=== PATIENT | male | born 1935 | race Caucasian/White ===

== ENCOUNTER → 2023-08-31 13:38 | Outpatient (REF) | payer MEDICARE, OTHER, SELFPAY | LOC: MRI 13:38 | PROVIDERS: ATTENDING PHYSICIAN Psychiatry & Neurology Neurology; FAMILY PHYSICIAN Family Medicine | DX: R47.01 Aphasia (principal) | CPT/HCPCS: 70551 ==

== ENCOUNTER → 2023-12-07 15:50 | Outpatient (REF) | payer MEDICARE, OTHER, SELFPAY | LOC: HWRAD 15:50 | PROVIDERS: ATTENDING PHYSICIAN Family Medicine | DX: M54.9 Dorsalgia, unspecified (principal) | CPT/HCPCS: 72072; 72110 ==

== ENCOUNTER 2023-12-16 04:31 | Emergency (ER) | payer MEDICARE, OTHER, SELFPAY ==
[2023-12-16] VITALS (7 sets, daily range): BP systolic 118–147; BP diastolic 71–90; BMI 23.6
--- NOTE | 2023-12-16 04:47 | ED.GENMED ---
History of Present Illness
<LEONEL Marcus - Last Filed: 12/16/23 22:00>
General
Chief Complaint: Back Pain
Source: patient and family
Exam Limitations: dementia
Time Seen by Provider: 12/16/23 04:45
Nursing documentation reviewed up to this point in time: agreed with
History of Present Illness
History of Present Illness:
Patient is a 88yo M who presents w/ continued back pain after fall 10 days ago. Imaging was done day of fall and no fx found. Has been tx pain w/ lidocaine/icy hot patches and Tylenol. Reports pain was improving until today. Pt family said he was
able to ambulate earlier today w/o issue. Pt fell asleep for 2-3 hrs on recliner (not usual sleeping spot) and woke up w/ severe pain limiting movement. States he feels spasming in back. Pt states pain is equal BL and does not radiate down leg. Pt's
son notes his L back was very tender when trying to help pt into bed. Pt denies any changes to bowel or bladder habits from baseline. Denies any SHORT, dizziness, or numbness.
Review of Systems
<LEONEL Marcus - Last Filed: 12/16/23 22:00>
Review of Systems
Constitutional: Denies fever, fatigue or chills
Respiratory: Denies cough or trouble breathing
Cardiac: Denies chest pain or palpitations
ABD/GI: Denies abdominal pain, nausea, vomiting, diarrhea or constipated
: Denies dysuria
Musculoskeletal: Reports muscle pain and back pain
Skin: Reports itching
Neurological: Denies dizzy, headache, weakness or numbness
Phy Exam
<LEONEL Marcus - Last Filed: 12/16/23 22:00>
General Physical Exam
General Presentation: well appearing
General age: appears stated age
General Skin: warm and dry
General Habitus: normal
General Mental: alert
Eye Exam
Eye Exam: PERRL
Cardiovascular Exam
Cardiovascular Exam: regular rate/rhythm, no edema, no gallop and no murmur
Pulmonary Exam
Pulmonary Exam: lungs clear, no respiratory distress, no rales, no crackles, no rhonchi and no wheezing
Neurological Exam
Neurological Exam: alert, oriented x3, no sensory deficits and speech normal
Musculoskeletal Exam
Musculoskeletal Exam: back pain, neuro vasc intact and other (limited ROM due to pain )
Course
<LEONEL Marcus - Last Filed: 12/16/23 22:00>
Orders/Labs/Results
Orders:
Orders
12/16/23 05:51
Diazepam [Valium] 5 mg PO NOW STA
12/16/23 06:34
Acetaminophen [Tylenol] 1,000 mg PO NOW STA
12/16/23 06:49
PT Consult [Pt Eval And Treat] Urgent
Activity Level: Out of Bed-Early Mobility
12/16/23 07:46
CT Lumbar Spine W/o Iv Contras Urgent
Comment:
Reason For Exam: worsening pain after fall, neg XRAY
CT Thoracic Spine W/o Iv Contr Urgent
Comment:
Reason For Exam: worsenign pain after fall, neg XRAY
Ketorolac [Toradol] 30 mg IM NOW STA
12/16/23 08:20
Ketorolac [Toradol] 15 mg IM NOW STA
Vital Signs
Initial and Last Documented VS:
Initial Vital Signs
Temp Pulse Resp BP Pulse Ox
97.6 F 88 18 147/90 98
12/16/23 04:33 12/16/23 04:33 12/16/23 04:33 12/16/23 04:33 12/16/23 04:33
Last Documented Vital Signs
Temp Pulse Resp BP Pulse Ox
97.6 F 88 18 118/73 97
12/16/23 04:33 12/16/23 04:33 12/16/23 04:33 12/16/23 09:58 12/16/23 08:24
<Zackary Warren DO - Last Filed: 12/16/23 06:40>
Orders/Labs/Results
Orders:
Orders
12/16/23 05:51
Diazepam [Valium] 5 mg PO NOW STA
12/16/23 06:34
Acetaminophen [Tylenol] 1,000 mg PO NOW STA
12/16/23 06:49
PT Consult [Pt Eval And Treat] Urgent
Activity Level: Out of Bed-Early Mobility
12/16/23 07:46
CT Lumbar Spine W/o Iv Contras Urgent
Comment:
Reason For Exam: worsening pain after fall, neg XRAY
CT Thoracic Spine W/o Iv Contr Urgent
Comment:
Reason For Exam: worsenign pain after fall, neg XRAY
Ketorolac [Toradol] 30 mg IM NOW STA
12/16/23 08:20
Ketorolac [Toradol] 15 mg IM NOW STA
Vital Signs
Initial and Last Documented VS:
Initial Vital Signs
Temp Pulse Resp BP Pulse Ox
97.6 F 88 18 147/90 98
12/16/23 04:33 12/16/23 04:33 12/16/23 04:33 12/16/23 04:33 12/16/23 04:33
Last Documented Vital Signs
Temp Pulse Resp BP Pulse Ox
97.6 F 88 18 118/73 97
12/16/23 04:33 12/16/23 04:33 12/16/23 04:33 12/16/23 09:58 12/16/23 08:24
<Judie Mcdowell, DO - Last Filed: 12/16/23 10:34>
Orders/Labs/Results
Orders:
Orders
12/16/23 05:51
Diazepam [Valium] 5 mg PO NOW STA
12/16/23 06:34
Acetaminophen [Tylenol] 1,000 mg PO NOW STA
12/16/23 06:49
PT Consult [Pt Eval And Treat] Urgent
Activity Level: Out of Bed-Early Mobility
12/16/23 07:46
CT Lumbar Spine W/o Iv Contras Urgent
Comment:
Reason For Exam: worsening pain after fall, neg XRAY
CT Thoracic Spine W/o Iv Contr Urgent
Comment:
Reason For Exam: worsenign pain after fall, neg XRAY
Ketorolac [Toradol] 30 mg IM NOW STA
12/16/23 08:20
Ketorolac [Toradol] 15 mg IM NOW STA
Vital Signs
Initial and Last Documented VS:
Initial Vital Signs
Temp Pulse Resp BP Pulse Ox
97.6 F 88 18 147/90 98
12/16/23 04:33 12/16/23 04:33 12/16/23 04:33 12/16/23 04:33 12/16/23 04:33
Last Documented Vital Signs
Temp Pulse Resp BP Pulse Ox
97.6 F 88 18 118/73 97
12/16/23 04:33 12/16/23 04:33 12/16/23 04:33 12/16/23 09:58 12/16/23 08:24
<LEONEL Marcus - Last Filed: 12/16/23 22:00>
MDM/Problems Addressed
Differential Diagnosis Includes:
lumbar strain, occult lumbar fx, hernatied disc
<LEONEL Marcus - Last Filed: 12/16/23 22:00>
*Critical Care Note
Total Time (30-74mins, 75-104mins- exclusive of procedures): Not Applicable
<Judie Mcdowell DO - Last Filed: 12/16/23 10:34>
Update Note
Update Note:
ATTENDING SIGN OUT NOTE
07:00 -patient seen and evaluated by prior physician, 88-year-old male presenting for lower back pain. Patient had a fall about 10 days ago, at which time he had x-ray imaging of thoracic and lumbar spine, without evidence of fracture or
malalignment. He has been taking Tylenol for pain with relief, however last night slept in a lazy boy recliner and has increased pain to his back. Suspect muscle spasm. Vital signs stable. Patient received Valium and Tylenol, pending PT
consultation.
07:45 -patient still having significant pain. Will administer 1 dose of Toradol. Given worsening pain with negative x-rays, will obtain CT imaging to ensure no sub acute or acute pathology
10:00 -CT without acute fracture or malalignment. On reassessment, patient reports that he is feeling much better. He was able to ambulate with physical therapy and physical therapy is recommending home PT. Will discuss with case management to
arrange. Otherwise feel stable for discharge. Advised continued use of Tylenol, and will add cyclobenzaprine. Patient cautioned against somnolence with cyclobenzaprine. Patient will go home with and son. Return precautions discussed and
family verbalized understanding
ED Attending Note
<LEONEL Marcus - Last Filed: 12/16/23 22:00>
-
Portions of this chart may have been created with voice recognition software.� Occasional wrong word or��sound alike� substitutions may have occurred due to the inherent limitations of voice recognition software.
<Zackary Warren DO - Last Filed: 12/16/23 06:40>
ED Attending Note
Patient seen and examined by attending physician: Yes
I performed the substantive portion of visit, reviewed & personally made and approve the management plan that is documented in note by myself or TAM.: Yes
ED Attending Note:
88-year-old male presents with acute on subacute low back pain. Patient had a fall 10 days ago and had imaging at that time. Since then he has been having intermittent back pain. Last evening he slept in a lazy boy recliner and woke up with back
spasms. Denies any new trauma. He has been using lidocaine and IcyHot patches which he purchased [id number] along with Tylenol. He states that his pain has been improving gradually since the original fall. Denies fever, chills, nausea or
vomiting. Reports no chest pain or shortness of breath. Denies any low back radiation. Denies bowel or bladder retention or incontinence. Has been able to ambulate. Patient was seen in conjunction with the PA student. I have reviewed and agree
with the history and treatment plan presented. On my independent physical exam, patient is awake, alert, and at baseline mental status. He is able to communicate effectively. Heart is regular rate rhythm. Lungs are clear to auscultation
bilaterally without wheezes rales or rhonchi present. Abdomen soft nontender no hepatosplenomegaly. Good distal pulses. Skin is warm and dry.
Patient got Valium which did provide some relief. He is getting a dose of Tylenol and we will see.
Discharge Plan
Departure
Patient Disposition: Home (Routine Discharge)
Date of Disposition: 12/16/23
Time of Disposition: 10:31
Patient with high blood pressure during this ER visit?: No
Condition: Good
Discharge Problem:
Low back pain
Instructions: Low Back Pain (DC)
Prescriptions:
New
cyclobenzaprine 10 mg tablet
10 mg PO BID 5 Days Qty: 10 0RF
No Action
warfarin [Jantoven] 2.5 MG tablet
1.25 mg PO SUTUTHSA
warfarin [Jantoven] 2.5 MG tablet
2.5 mg PO MOWEFR
ascorbic acid (vitamin C) [Vitamin C] 500 MG tablet
1,000 mg PO DAILY
aspirin 81 MG tablet,chewable
81 mg PO DAILY
pravastatin 20 MG tablet
20 mg PO QPM
amiodarone [Pacerone] 100 MG tablet
50 mg PO DAILY
cholecalciferol (vitamin D3) 1,000 UNITS tablet
1,000 units PO BID
multivitamin with folic acid [Tab-A-Javier] 1 TABLET tablet
1 tab PO DAILY
metoprolol succinate 25 mg Tablet Extended Release 24 Hr
12.5 mg PO BID Qty: 60 2RF
ferrous sulfate [Iron (ferrous sulfate)] 325 mg (65 mg iron) tablet
325 mg PO BID Qty: 60 0RF
Referrals:
Yasmany Mcdonald MD [Family Provider] -
Activity Restrictions/Additional Instructions:
You were seen in the emergency department for back pain.
You are suspected to have muscle spasm. You had CT imaging of your back that did not show any broken bones. Your pain was controlled in the emergency department with a dose of Valium, Tylenol, and 1 dose of Toradol. You are being prescribed
cyclobenzaprine which is a muscle relaxer. This medication can sometimes make you sleepy, so pain from driving while on the medication and make sure to use your walker when ambulating. You were seen by physical therapy, recommended home physical
therapy. You were seen by case management who will work with you to arrange this at home
Please follow-up closely with your primary care physician.
Return to the emergency department for any worsening of your symptoms, or any development of chest pain, difficulty breathing, abdominal pain with persistent vomiting and inability to tolerate food or liquid by mouth (concern for dehydration),
weakness or numbness to your extremities, headache or confusion, fever greater than 100.4, or any additional symptoms that are concerning to you.
Thank you for choosing [facility].
Interventions
Interventions:
*Risk Screen - Suicide Last Done: 12/16/23 04:33
*General Assessment Last Done: 12/16/23 04:33
*Neglect/Abuse Screening Last Done: 12/16/23 04:33
ED- Fall Risk Assessment Last Done: 12/16/23 11:15
*ED COVID-19 Vaccine History Last Done: 12/16/23 08:16
*Nursing Disposition Last Done: 12/16/23 11:15
ED-Musculoskeletal Assessment Last Done: 12/16/23 04:33
Discharge Date and Time
Discharge Date/Time: 12/16/23 11:15
Print Language: ALGERIAN
[2023-12-16] MEDS: VALIUM 5 MG PO (05:57)
[2023-12-16] MEDS: TYLENOL 1000 MG PO (07:33)
[2023-12-16] MEDS: TORADOL 15 MG IM (08:28)
--- NOTE | 2023-12-16 10:45 | CM ---
Met with patient and family in ED, Bed 2
Patient lives with in a split level home w/; 1st floor set up; 1 step to enter via back door; 2 steps up to his bathroom; bath has stall shower
PLOF: independent with ADLs, ambulates with RW; does not drive
DME: INR device
Son will transport home
Explained PT recommendation for Home PT; agency options identified; preference is [facility]; referral sent to liasion
Plan: Discharge to Home with Home Health for PT
--- NOTE | 2023-12-16 11:26 | VNURNOTE ---
Home Health Liaison met with patient, and son at bedside to discuss [facility] nurse/therapy, visits, schedule and homebound status. Patient is agreeable and understands that visits at home will be 2-3 x per week to assess and teach medical
management.
[facility] brochure provided with contact information. Patient is aware that [facility] will contact them for start of care in 1-2 days after discharge from .
[facility] referral completed in [facility] Port.
== END 2023-12-16 11:15 | disposition home or self-care (01) ==
LOC: EMR 04:31
PROVIDERS: EMERGENCY PHYSICIAN Student in an Organized Health Care Education/Training Program; FAMILY PHYSICIAN Family Medicine
DX: M54.50 Low back pain, unspecified (principal); W19.XXXA Unspecified fall, initial encounter; F03.90 Unspecified dementia, unspecified severity, without behavioral disturbance, psychotic disturbance, mood disturbance, and anxiety
CPT/HCPCS: 99284; 96372; 72128; 72131